=== PATIENT | male | born 1945 | race Caucasian/White ===

== ENCOUNTER 2017-01-16 05:57 | Emergency (ER) | payer OTHER, BC ==
[~2017-01-16] VITALS: Ht 172.7 cm; Wt 76.2 kg
[~2017-01-16 05:57] MED LIST: DIOVAN; FLOMAX
[2017-01-16] MEDS ORDERED: CARDURA4 MG PO (06:16)
[2017-01-16] MEDS ORDERED: AMLODIPINE BESY10 MG PO (06:16)
[2017-01-16] MEDS ORDERED: ADULT LOW DOSE81 MG PO (06:17)
[2017-01-16 06:21] LABS: ABSOLUTE NEUTROPHILS 4.9 thou/uL (1.4-8.2); BASOPHILS 0.9 % (0.0-2.0); EOSINOPHILS 1.4 % (0.0-3.0); HEMATOCRIT 46.2 % (42.0-52.0); HEMOGLOBIN 16.4 gm/dL (14.0-18.0); LYMPHOCYTES 23.5 % (24.0-44.0); MCH 31.9 pg (26.0-34.0); MCHC 35.4 g/dL (28.0-37.0); MONOCYTES 7.7 % (1.0-8.0); PLATELET COUNT 166 thou/uL (150-400); POLYS 66.5 % (36.0-66.0); RBC 5.13 mil/uL (4.50-6.00); RDW 13.9 % (10.5-14.5); WBC 7.3 thou/uL (4.0-11.0)
[2017-01-16 06:23] LABS: MANUAL DIFF NO
[2017-01-16 06:28] LABS: CALCIUM 10.8 mg/dL (8.5-10.1); CREATININE 1.7 mg/dL (0.7-1.3); POTASSIUM 3.7 mmol/L (3.5-5.1)
[2017-01-16 06:37] LABS: URINE BILIRUBIN NEGATIVE (Negative); URINE BLOOD TRACE (Negative); URINE COLOR YELLOW; URINE GLUCOSE-RANDOM* NEGATIVE (Negative); URINE KETONES NEGATIVE (Negative); URINE NITRITE NEGATIVE (Negative); URINE PROTEIN (DIPSTICK) NEGATIVE (Negative); URINE SPECIFIC GRAVITY <= 1.005 (1.003-1.035); URINE UROBILINOGEN 0.2 E.U./dl (0.2-1.0)
[2017-01-16 07:49] VITALS: BP 153/64
== END 2017-01-16 07:50 | disposition home or self-care (01) ==
LOC: ER
PROVIDERS: Emergency Medicine
DX: R33.9 Retention of urine, unspecified (principal); F10.99 Alcohol use, unspecified with unspecified alcohol-induced disorder; Z88.0 Allergy status to penicillin

== ENCOUNTER 2017-01-17 11:51 | Emergency (ER) | payer OTHER, BC ==
[~2017-01-17] VITALS: Ht 160 cm; Wt 72.6 kg
[~2017-01-17 11:51] MED LIST changes: +ADULT LOW DOSE81 MG PO; +AMLODIPINE BESY10 MG PO; +CARDURA4 MG PO
[2017-01-17 14:11] VITALS: BP 123/68
== END 2017-01-17 14:00 | disposition home or self-care (01) ==
LOC: ER 11:51
DX: T83.9XXA Unspecified complication of genitourinary prosthetic device, implant and graft, initial encounter (principal); R31.9 Hematuria, unspecified; Z88.0 Allergy status to penicillin; Y84.6 Urinary catheterization as the cause of abnormal reaction of the patient, or of later complication, without mention of misadventure at the time of the procedure

== ENCOUNTER 2019-08-13 22:31 | Emergency (ER) | payer OTHER, BC ==
[~2019-08-13] VITALS: Ht 172.7 cm; Wt 86.2 kg
[2019-08-13] MEDS ORDERED: EPIPEN 2-P0.3 MG/0.3 IM (23:16)
[2019-08-13] MEDS ORDERED: PEPCID20 MG PO (23:16)
[2019-08-14 00:36] VITALS: BP 124/88
== END 2019-08-14 00:40 | disposition home or self-care (01) ==
LOC: ER 22:31
DX: T78.1XXA Other adverse food reactions, not elsewhere classified, initial encounter (principal); T44.5X1A Poisoning by predominantly beta-adrenoreceptor agonists, accidental (unintentional), initial encounter; I10 Essential (primary) hypertension; Z90.5 Acquired absence of kidney; Z88.0 Allergy status to penicillin; X58.XXXA Exposure to other specified factors, initial encounter; Y92.89 Other specified places as the place of occurrence of the external cause